=== PATIENT | female | born 1970 | race Caucasian/White ===

== ENCOUNTER 2021-08-30 19:33 | Emergency (ER) | payer OTHER ==
[~2021-08-30] VITALS: Ht 162.6 cm; Wt 80.5 kg
[~2021-08-30 19:33] MED LIST: CYCL10TA19 PO; HYDR-2155 PO; PRED50TA PO
[2021-08-30 19:48] VITALS: BP 103/68
--- NOTE | 2021-08-30 19:59 | PHYS DOC ---
Past History Past Medical History: Hypothyroid Past Surgical History: Hysterectomy, Other Alcohol Use: Occasionally Drug Use: None General Adult EDM: Chief Complaint: ALLERGIC REACTION HPI: HPI: ".. I was having some joint swelling and aches.. more in my Lt., knee.. they said I had Bursitis at Dr. Silva office. I got a short of steroids.. after the shot I had in creased pain in my arms .. and legs.." I think I am having an allergeric reaction to the steroids. " Patient is a 51 year old female who presents with above hx and complaints of allergic reaction to steroid shot she received earlier today at Dr. Silva's office. Patient at that visit was diagnosed with bursitis in her left knee. No recent travel. No history of fever or chills. No history of severe ill contacts. No history of previous episodes of bursitis. No history of immunosuppression. No history of trauma to left knee. Patient does have some history of arthritic complaints in the past. Patient denies any other new meds, foods, or [id number] drugs and/or supplements.. Pt. follows with Dr. Silva. Review of Systems: Review of Systems: Constitutional: Denies fever or chills Eyes: Denies change in visual acuity HENT: Denies nasal congestion or sore throat Respiratory: Denies cough or shortness of breath Cardiovascular: Denies chest pain or edema GI: Denies abdominal pain, nausea, vomiting, bloody stools or diarrhea : Denies dysuria Musculoskeletal: Complains of generalized muscle and joint pain after steroid shot Integument: Denies rash Neurologic: Denies headache, focal weakness or sensory changes Endocrine: Denies polyuria or polydipsia Lymphatic: Denies swollen glands Psychiatric: Denies depression or anxiety Family History: Family History: Noncontributory to presentation Current Medications: Current Meds: See nursing for home meds Allergies: Allergies: Allergies Coded Allergies Type Severity Reaction Last Updated Verified codeine Allergy Unknown 03/17/15 No Physical Exam: PE: Constitutional: , no acute distress, non-toxic appearance. [] HENT: Normocephalic, atraumatic, bilateral external ears normal, oropharynx moist, no oral exudates, nose normal. [] Eyes: PERRLA, EOMI, conjunctiva normal, no discharge. [] Neck: Normal range of motion, no tenderness, supple, no stridor. [] Cardiovascular:Heart rate regular rhythm, no murmur [] Lungs & Thorax: Bilateral breath sounds equal apex with no significant wheeze or stridor on auscultation [] Abdomen: Bowel sounds normal, soft, no tenderness, no masses, no pulsatile masses. [] Skin: Warm, dry, no erythema, no rash. [] Back: No tenderness, no CVA tenderness. [] Extremities: No tenderness, no cyanosis, no clubbing, ROM intact, no edema. Except findings of edema in left knee. No cording appreciated in legs. Neurologic: Alert and oriented X 3, normal motor function, normal sensory function, no focal deficits noted. [] Psychologic: Affect anxious , judgement normal, mood normal. [] EKG: EKG: [] Radiology/Procedures: Radiology/Procedures: Deferred at this time. [] Heart Score: C/O Chest Pain: N/A Risk Factors: Risk Factors: DM, Current or recent (<one month) smoker, HTN, HLP, family history of CAD, obesity. Risk Scores: Score 0 - 3: 2.5% MACE over next 6 weeks - Discharge Home Score 4 - 6: 20.3% MACE over next 6 weeks - Admit for Clinical Observation Score 7 - 10: 72.7% MACE over next 6 weeks - Early Invasive Strategies Course & Med Decision Making: Course & Med Decision Making Pertinent Labs and Imaging studies reviewed. (See chart for details) Feel it is unlikely patient is having allergic reaction to the steroid shot earlier. May have had some reaction to the of his overdose or carrier portion of the injection. Would take Pepcid 20 mg twice a day. Follow-up with Dr. Silva's. Return if any concerns. Impression: 1. History of bursitis left knee 2. History of arthritis 3. Complaints of possible allergic reaction to Steroid shot earlier today [] Dragon Disclaimer: Dragon Disclaimer: This electronic medical record was generated, in whole or in part, using a voice recognition dictation system. Departure Departure: Referrals: DANIELA SILVA MD (PCP) Scripts Famotidine (PEPCID) 20 Mg Tablet 1 TAB PO BID for allergic rx for 14 Days, #28 TAB 3 Refills Prov: VIVI PEARSON MD 4/22/22 Dragon Disclaimer This chart was dictated in whole or in part using Voice Recognition software in a busy, high-work load, and often noisy Emergency Department environment. It may contain unintended and wholly unrecognized errors or omissions. VIVI PEARSON MD Aug 30, 2021 19:59
[2021-08-30] MEDS ORDERED: FAMOTIDINE 20 MG TABLET PO ONE (20:30)
[2021-08-30] MEDS ORDERED: FAMO-63 PO (20:36)
== END 2021-08-30 21:18 | disposition home or self-care (01) ==
LOC: ER 19:33
DX: M25.562 Pain in left knee (principal); R60.0 Localized edema; M19.90 Unspecified osteoarthritis, unspecified site; E03.9 Hypothyroidism, unspecified; Z88.5 Allergy status to narcotic agent
CPT/HCPCS: 99283

== ENCOUNTER → 2021-09-10 | Outpatient (CLI) | payer OTHER ==
[2021-08-30 19:48] VITALS: BP 103/68
[~2021-09-10] MED LIST changes: +FAMO-63 PO
--- NOTE | 2021-09-11 08:25 | RAD ---
EXAM: XR KNEE _3 [id number]_LT 09/10/2021 5:25 PM CLINICAL INDICATION: Chronic pain COMPARISON: None TECHNIQUE: AP, oblique and lateral views of the left knee FINDINGS: No acute fracture. Alignment is normal. There is very mild medial and lateral compartment narrowing with tiny osteophytes. No significant joint effusion or soft tissue abnormality. IMPRESSION: Mild degenerative joint disease. Electronically signed by: Cheli Roy MD (09/11/2021 8:22 AM) [id number]
== END ==
LOC: RAD 17:01
PROVIDERS: ATTEND Physician Assistant
DX: M17.12 Unilateral primary osteoarthritis, left knee (principal); M25.762 Osteophyte, left knee
CPT/HCPCS: 73562